=== PATIENT | male | born 1960 | race Caucasian/White ===

== ENCOUNTER → 2016-05-12 | Outpatient (CLI) | payer BC ==
[~2016-05-12] MED LIST: ASPI81TA21 PO; ATOR-54 PO; CARV3.12 PO; CLB/200 PO; CYCL-259 PO; ESOM40GR PO; FLUO20CA34 PO; LISI-725 PO; LSX/40 PO; POTA12PO5 PO
== END | disposition home or self-care (01) ==
LOC: C.RDSM 14:00
PROVIDERS: ATTEND Orthopaedic Surgery Sports Medicine
DX: M25.561 Pain in right knee (principal); M25.562 Pain in left knee

== ENCOUNTER → 2016-08-25 | Outpatient (CLI) | payer BC ==
--- NOTE | 2016-08-25 12:49 | DIAGNOSTIC IMAGING REPORT ---
MRI OF THE RIGHT KNEE NO CONTRAST CLINICAL HISTORY: M25.469 right knee lateral pain. History of multiple prior surgeries. Swelling. COMPARISON STUDY: July 26, 2009 FINDINGS: Imaging was performed in the sagittal, coronal, and axial planes. There is mild motion artifact. The quadriceps and patellar tendons appear intact. The posterior cruciate ligament appears intact. A normal anterior cruciate ligament is not visualized. It is presumably torn. There is advanced chondrosis involving the lateral joint compartment. There is mild to moderate chondrosis involving the medial joint compartment. There is advanced chondrosis involving the lateral patellofemoral joint. There is mild lateral patellar tilt. There is subchondral marrow edema involving the lateral patellar facet, likely degenerative basis. There is marrow edema involving the lateral tibial plateau, likely on a degenerative basis. There is no evidence of medial or lateral collateral ligament disruption There is a horizontal tear involving the anterior horn of the lateral meniscus. There is also an equivocal tear involving the posterior horn of the lateral meniscus. There is a bucket-handle tear the medial meniscus. IMPRESSION: 1. Anterior cruciate ligament tear 2. Advanced 3 compartment chondrosis. 3. Lateral patellar tilt 4. Subchondral marrow edema involving the lateral patellar facet and lateral tibial plateau likely degenerative/stress related basis 5. No evidence of medial or lateral collateral ligament disruption 6. Tears of the medial and lateral menisci Electronically signed by: Dillan Rubi M.D. 08/25/2016 12:47 PM Dictated Date/Time: 08/25/2016 12:40 PM
== END | disposition home or self-care (01) ==
LOC: C.MRI 09:37
PROVIDERS: ATTEND Orthopaedic Surgery Sports Medicine
DX: M25.469 Effusion, unspecified knee (principal)

== ENCOUNTER 2017-05-01 07:56 | Inpatient (IN) | payer BC ==
[2017-04-13 11:22] VITALS: Ht 170.2 cm; Wt 102.3 kg
--- NOTE | 2017-04-13 11:55 | PAT Medication Instructions ---
Service Date Apr 13, 2017. Current Home Medication List Allopurinol (Zyloprim), 100 MG PO QAM Celecoxib (CeleBREX), 200 MG PO BID Folic Acid (Folvite), 1 MG PO QAM Hydrochlorothiazide (Hctz), 25 MG PO QAM Lisinopril (Prinivil), 10 MG PO HS Montelukast Sodium (Montelukast Sodium), 1 TAB PO QAM Pantoprazole (Protonix), 40 MG PO QAM Potassium Citrate (Alkalinizer (Urocit-K 10), 1 TAB PO QAM Medication Instructions For Your Scheduled Surgery -Contact your surgeon for instructions for: Celecoxib (CeleBREX), 200 MG PO BID - Hold the following medications the night before surgery: Lisinopril (Prinivil), 10 MG PO HS - Hold the following medications the morning of surgery: Folic Acid (Folvite), 1 MG PO QAM Hydrochlorothiazide (Hctz), 25 MG PO QAM Potassium Citrate (Alkalinizer (Urocit-K 10), 1 TAB PO QAM - Take the following medications the morning of surgery with a sip of water: Allopurinol (Zyloprim), 100 MG PO QAM Montelukast Sodium (Montelukast Sodium), 1 TAB PO QAM Pantoprazole (Protonix), 40 MG PO QAM If you have any questions please call us at [phone] or [phone] or [phone]
[2017-04-13 12:33] LABS: BASO % 0.7 %; BASO ABS # 0.06 K/uL (0-0.2); EOS % 1.4 %; EOS ABS # 0.11 K/uL (0-0.5); HEMATOCRIT 45.2 % (42-52); HEMOGLOBIN 16.5 g/dL (14.0-18.0); IG# 0.02 K/uL (0.00-0.02); LYMPH % 28.7 %; LYMPH ABS # 2.33 K/uL (1.2-3.4); MEAN CELL VOLUME 83.2 fL (80-100); MEAN CORPUSCULAR HEMOGLOBIN 30.4 pg (25-34); MEAN CORPUSCULAR HGB CONC 36.5 g/dl (32-36); MEAN PLATELET VOLUME 9.1 fL (7.4-10.4); MONO % 10.7 %; MONO ABS # 0.87 K/uL (0.11-0.59); NEUT % 58.3 %; NEUT ABS # 4.74 K/uL (1.4-6.5); PLATELET COUNT 433 K/uL (130-400); RED CELL DISTRIBUTION WIDTH CV 13.7 % (11.5-14.5); WHITE BLOOD COUNT 8.13 K/uL (4.8-10.8)
[2017-04-13 12:42] LABS: PTT PATIENT 24.9 SECONDS (21.0-31.0)
--- NOTE | 2017-04-13 13:00 | DIAGNOSTIC IMAGING REPORT ---
CHEST 2 VIEWS ROUTINE CLINICAL HISTORY: Preoperative evaluation. COMPARISON STUDY: Chest radiograph August 12, 2009. FINDINGS: The lung volumes are normal. There is no pneumothorax or pleural effusion. Pulmonary vascularity is normal. Cardiac size is normal. Mediastinal contours are normal. There is no consolidation. There are cholecystectomy clips. IMPRESSION: No acute cardiopulmonary findings. Electronically signed by: Ad Kumari M.D. 04/13/2017 12:59 PM Dictated Date/Time: 04/13/2017 12:58 PM
--- NOTE | 2017-04-13 15:38 | History and Physical ---
History & Physical Date & Time of Service: Apr 13, 2017 at 15:19 Chief Complaint: Right Knee Osteoarthritis Primary Care Physician: Isaias Roberts M.D. History of Present Illness Source: patient Patient is a pleasant 56-year-old male who presented to our office today for preoperative history and physical. He is scheduled to have a right total knee arthroplasty by Dr. Osuna on May 01, 2017. He has had many years of right knee pain. He had undergone a right knee arthroscopy partial medial and lateral meniscectomies, loose body removal, chondroplasty of the trochlea medial and lateral tibial plateaus, and lateral femoral Garcia on August 23, 2009. He complains of pain in his right knee on a daily basis. He has undergone conservative treatment which no longer is that beneficial. He previously has had corticosteroid injections and a series of viscous supplementation back in September 2016. He states he really did not get any improvement from viscous supplementation. He has pain daily and with every daily activity that he performs. His pain that wakes him up at night. He states he occasionally gets pain at rest. He has start up pain. He states that he has had to modify all of his activities to avoid symptoms of pain. He denies any catching or locking of his right knee but occasionally have some giving way type symptoms. Due to his progressively worsening symptoms, Surgical intervention was discussed. Risks and complications were discussed. He wished to proceed with surgery. Surgery was scheduled. X-rays have been takenAnd show mild to moderate degenerative changes of the right knee with joint space narrowing consistent with degenerative joint disease. He also had an MRI which showed advanced tricompartmental arthritis. Past Medical/Surgical History 1. Hypertension 2. 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 Osteoarthritis 4. Obesity 5. History of kidney stones 6. History of post operative staph infection in his right knee Past surgical history: 1. Right knee arthroscopy 5 2. Left knee arthroscopy 2 3. Left triceps tendon repair 4. Appendectomy 5. Splenectomy 6. Tonsillectomy 7. Lithotripsy for kidney stones 8. C-spine surgery Family History Reviewed and Noncontributory Social History Smoking Status: Never Smoker Alcohol Use: 2 alcoholic Vivi's per week Drug Use: none Marital Status: Housing status: lives with family Occupational Status: employed Allergies Coded Allergies: Penicillins (Verified Allergy, Unknown, HIVES, 04/13/17) Sulfa Drugs (Verified Allergy, Unknown, ? HIVES, OCCURED A CHILD, ) Home Medications Scheduled Allopurinol (Zyloprim), 100 MG PO QAM Celecoxib (CeleBREX), 200 MG PO BID Folic Acid (Folvite), 1 MG PO QAM Hydrochlorothiazide (Hctz), 25 MG PO QAM Lisinopril (Prinivil), 10 MG PO HS Montelukast Sodium (Montelukast Sodium), 1 TAB PO QAM Pantoprazole (Protonix), 40 MG PO QAM Potassium Citrate (Alkalinizer (Urocit-K 10), 1 TAB PO QAM Review of Systems Constitutional: + problem reported (occasional headaches), No fever, No chills , No sweats, No weight loss, No fatigue Eyes: No worsening of vision, No redness ENT: No hearing loss, No nasal symptoms, No sore throat, No tinnitus, No dental problems Respiratory: + dyspnea on exertion (states gets short of breath with activities due to being out of shape), No cough, No sputum, No wheezing, No shortness of breath, No dyspnea at rest Cardiovascular: No chest pain, No edema, No palpitations Abdomen: No pain, No nausea, No vomiting, No diarrhea, No constipation Musculoskeletal: + joint pain (Bilateral knees; right greater than left), No swelling, No calf pain Genitourinary - Male: No hematuria, No dysuria, No urinary frequency, No urinary urgency, No urinary retention Neurologic: No memory loss, No numbness/tingling Psychiatric: No depression symptoms, No anxiety Endocrine: No fatigue, No excessive thirst Hematologic / Lymphatic: No abnormal bleeding/bruising, No clotting problems Integumentary: No rash, No itch Allergic / Immunologic: No frequent infections, No poor healing Physical Exam General Appearance: WD/WN, no apparent distress Head: normocephalic, atraumatic Eyes: normal inspection, PERRL, EOMI, sclerae normal ENT: normal ENT inspection, hearing grossly normal, TMs normal, pharynx normal Neck: supple, no adenopathy, thyroid normal, no carotid bruits, trachea midline Respiratory/Chest: chest non-tender, lungs clear, normal breath sounds, no respiratory distress, no accessory muscle use Cardiovascular: regular rate, rhythm, no edema, no murmur, normal peripheral pulses Abdomen/GI: normal bowel sounds, non tender, soft Extremities/Musculoskelatal: no calf tenderness, normal capillary refill, no pedal edema, + pertinent finding (Right lower extremity: No effusion right knee , Distal neurovascularly intact. Strength 5/5. Range of motion on the right knee as 5-120, range of motion on the left knee is 5-125. He is able to independent straight leg raise. Ligamentous exam right knee is stable. Point tenderness with palpation of the right knee lateral joint line and proximal lateral tibial plateau. A slight antalgic gait. Uses no assistive device.) Neurologic/Psych: no motor/sensory deficits, alert, normal mood/affect, normal reflexes, oriented x 3 Skin: normal color, warm/dry, no rash Diagnostics Laboratory Results Results Past 24 Hours Test 04/13/17 00:00 04/13/17 12:07 Range/Units Urine Color YELLOW Urine Appearance CLEAR CLEAR Urine pH 6.0 4.5-7.5 Urine Specific [place] 1.008 1.000-1.030 Urine Protein NEG NEG Urine Glucose (UA) NEG NEG Urine Ketones NEG NEG Urine Occult Blood NEG NEG Urine Nitrite NEG NEG Urine Bilirubin NEG NEG Urine Urobilinogen NEG NEG Urine Leukocyte Esterase NEG NEG White Blood Count 8.13 4.8-10.8 K/uL Red Blood Count 5.43 4.7-6.1 M/uL Hemoglobin 16.5 14.0-18.0 g/dL Hematocrit 45.2 42-52 % Mean Corpuscular Volume 83.2 80-100 fL Mean Corpuscular Hemoglobin 30.4 25-34 pg Mean Corpuscular Hemoglobin Concent 36.5 32-36 g/dl Platelet Count 433 130-400 K/uL Mean Platelet Volume 9.1 7.4-10.4 fL Neutrophils (%) (Auto) 58.3 % Lymphocytes (%) (Auto) 28.7 % Monocytes (%) (Auto) 10.7 % Eosinophils (%) (Auto) 1.4 % Basophils (%) (Auto) 0.7 % Neutrophils # (Auto) 4.74 1.4-6.5 K/uL Lymphocytes # (Auto) 2.33 1.2-3.4 K/uL Monocytes # (Auto) 0.87 0.11-0.59 K/uL Eosinophils # (Auto) 0.11 0-0.5 K/uL Basophils # (Auto) 0.06 0-0.2 K/uL RDW Standard Deviation 41.0 36.4-46.3 fL RDW Coefficient of Variation 13.7 11.5-14.5 % Immature Granulocyte % (Auto) 0.2 % Immature Granulocyte # (Auto) 0.02 0.00-0.02 K/uL Prothrombin Time 10.5 9.0-12.0 SECONDS Prothromb Time International Ratio 1.0 0.9-1.1 Activated Partial Thromboplast Time 24.9 21.0-31.0 SECONDS Partial Thromboplastin Ratio 1.0 Diagnostic Radiology Radiology images: X-rays bilateral knee: AP standing, lateral, sunrise and 45 flexion PA views show mild to moderate degenerative changes of the right knee with joint space narrowing laterally, sclerosis, increased osteophyte formation, most significant in the patellofemoral joint and intercondylar notch. Left knee mild degenerative changes medial joint space narrowing, sclerosis, posterior osteophytes. Is a small calcified lesion adjacent to the medial cortex of the proximal tibia at the metaphyseal diaphyseal junction. X-ray bilateral hips to ankles: Bilateral leg length study measures 176 on the right 179 on the left. MRI of right knee: Shows advanced tricompartmental arthritis, most significantly the patellofemoral joint with [id number], and edema and subchondral cyst within the patella and trochlea. Significant edema within the subchondral bone of the lateral tibial plateau. CXR normal Impression Assessment and Plan Assessment: End stage degenerative joint disease right knee Plan: The patient will be admitted on May 01, 2017 to undergo an elective right total knee arthroplasty by Dr. Osuna at the [facility]. Risks and complications of surgery were expanded the patient and include but are not limited to infection, pain, bleeding, scarring, nerve and blood vessel damage, wound problems, weakness, stiffness, incomplete relief of symptoms, fracture, hardware failure, loosening, wear, blood clots, embolisms, heart attack, stroke and . Informed consent was obtained by Dr. Osuna. All questions were answered today. Postoperative course was discussed. He will be admitted for approximately 2 days after surgery and would like to go home with home health. He states that he does have a walker at home that he could use after surgery. He was instructed on the usage of CHG cloths. He will have permission testing later today in which he will obtain a preoperative chest x- ray, EKG, CBC, BMP, PT, PTT, type and screen, urinalysis. He will have preoperative medical clearance from his family physician Dr. Roberts. We will use Lovenox for DVT prophylaxis 30 mg twice a day 21 days after surgery. Time out of work was discussed. He feels that he can go back relatively soon with having sedentary job and the ability to ride with someone to work. I explained to him he would at least need to be out for approximately 2 weeks or until his first postoperative appointment. He knows to call with any further problems, questions or concerns. Advanced Directives Existing Living Will: No Existing Power of Warning Coordination Meteorologist: No Resuscitation Status VTE Prophylaxis Will order VTE Prophylaxis: Yes
[~2017-05-01] VITALS: Ht 170.2 cm; Wt 102.3 kg
[~2017-05-01 07:56] MED LIST changes: +ALLO100T PO; -ASPI81TA21 PO; -ATOR-54 PO; -CARV3.12 PO; +CEFAZOLIN 2000MG IV PUSH 15 ML IV SCH; -CYCL-259 PO; +CeleBREX 200 MG CAP PO SCH; -ESOM40GR PO; -FLUO20CA34 PO; +FOLI1TAB8 PO; +GABAPENTIN 300 MG CAP PO SCH; +HYDR25TA4 PO; +LACTATED RINGER'S 1000ML 1,000 ML IV SCH; +LACTATED RINGER'S 1000ML 500 ML IV SCH; +LACTATED RINGER'S 1000ML IV SCH; -LISI-725 PO; +LISI10TA PO; -LSX/40 PO; +MONT1TAB5 PO; +PANT40TA PO; -POTA12PO5 PO; +POTATAB2 PO; +ROPIVACAINE 5MG/ML 30 ML 150 MG, BUPIVACAINE/EPINEPHR 0.5% MPF 30 ML, KETOROLAC TROMETH... INFIL SCH; +SCOPOLAMINE 1.5 MG TDSY TD SCH; +TRANEXAMIC ACID INJ 1,000 MG x 1 Bag Preop IV SCH
[2017-05-01] MEDS ORDERED: BUPIVACAINE 0.5 % 5 MG/1 ML PF 10ML VIAL ONE (08:07)
[2017-05-01] MEDS ORDERED: HYDROmorphone INJ 1 MG/ML SYR IV PRN (08:30)
[2017-05-01] MEDS ORDERED: FENTANYL CITRATE INJ 50 MCG/1 ML 2 ML VIAL IV PRN (08:30)
[2017-05-01] MEDS ORDERED: ONDANSETRON INJ 2 MG/ML 2 ML VIAL IV PRN ×2 (08:30→14:15)
[2017-05-01] MEDS ORDERED: ATROPINE SULFATE 0.1 MG/ML 5ML SYR IV PRN (08:30)
[2017-05-01] MEDS ORDERED: EpHEDrine SULFATE INJ 50 MG/ML AMP IV PRN (08:30)
[2017-05-01 09:11] VITALS: BP 148/95; PULSE 80; TEMP 36.5; O2SAT 96
[2017-05-01] MEDS ORDERED: MIDAZOLAM HCL 1 MG/ML 2ML VIAL ONE (09:57)
[2017-05-01] MEDS ORDERED: FENTANYL CITRATE INJ 50 MCG/1 ML 2 ML VIAL ONE (09:57)
--- NOTE | 2017-05-01 10:05 | History & Physical Bridge Note ---
H&P Re-Evaluation Bridge Note: I have examined the patient, reviewed the History & Physical and in the interval since the performance of the History & Physical I have noted the following changes of clinical significance: No changes noted
[2017-05-01] MEDS ORDERED: POVIDONE-IODINE OP SOLN 30 ML BTL ONE (10:40)
[2017-05-01] MEDS ORDERED: ORTHO JOINT ANESTHETIC ONE (10:40)
[2017-05-01] MEDS ORDERED: VANCOMYCIN HCL 1000MG/20ML VIAL ONE ×2 (10:41→13:12)
[2017-05-01] MEDS ORDERED: ROCURONIUM BROMIDE 10 MG/ML 5 ML VIAL IV ONE (10:43)
[2017-05-01] MEDS ORDERED: SUCCINYLCHOLINE CHLORIDE 20 MG/ML 10 ML VIAL IV ONE (10:43)
[2017-05-01] MEDS ORDERED: LIDOCAINE HCL 2% 2 ML VIAL (20MG/ML) ONE (10:43)
[2017-05-01] MEDS ORDERED: PROPOFOL IV EMULSION 10 MG/ML 20 ML VIAL IV ONE (10:43)
[2017-05-01] MEDS ORDERED: DEXAMETHASONE SOD INJ 4 MG/ML VIAL ONE (10:44)
[2017-05-01] MEDS ORDERED: NEOSTIGMINE METHYLSULFATE 5 MG/5 ML SYR ONE (10:44)
[2017-05-01] MEDS ORDERED: HYDROmorphone INJ 2 MG/ML SYR/VIAL ONE (12:01)
[2017-05-01] MEDS: GENTAMICIN SULFATE 40 MG/ML 2 ML VIAL ONE ×2 (12:59→13:16)
--- NOTE | 2017-05-01 14:12 | [facility] Post Operative Brief Note ---
Immediate Operative Summary Operative Date May 01, 2017. Pre-Operative Diagnosis End Stage Degenerative Joint Disease, Right Knee Post-Operative Diagnosis End Stage Degenerative Joint Disease, Right Knee Procedure(s) Performed Right Total Knee Arthroplasty Surgeon Dr. Shashank Osuna Technical Sales Associate Surgeon(s) Dr. Kofi Dolan Estimated Blood Loss 50ML Findings Consistent with Post-Op Diagnosis Fluids (cc crystalloids) 1700 Specimens Permanent Solution: A.) Right Knee Bone and Tissue Drains None Anesthesia Type General Regional Complication(s) none Disposition Disposition: Recovery Room / PACU (Stable)
--- NOTE | 2017-05-01 14:12 | [facility] Operative Report ---
Operative Report Operative Date May 01, 2017. Pre-Operative Diagnosis End Stage Degenerative Joint Disease, Right Knee Post-Operative Diagnosis End Stage Degenerative Joint Disease, Right Knee Procedure(s) Performed Right Total Knee Arthroplasty Surgeon Dr. Shashank Osuna [place] Surgeon(s) Dr. Kofi Dolan Estimated Blood Loss 50ML Findings Right knee Examined Under Anesthesia: ROM -- There was 10 degrees to 115 degrees of flexion Ligamentous examination -- revealed stable Amie, posterior drawer, varus and valgus stress at 0 and 30 degrees. valgus alignment. Out[place]bridge Type 4 changes of patellofemoral, and lateral compartments. There was type 2-3 changes in the medial compartment. Fluids 1700 Specimens Permanent Solution: A.) Right Knee Bone and Tissue Drains None Anesthesia Type General Regional Complication(s) none Disposition Recovery Room / PACU (Stable) Indications This is a 56-year-old male who has clinical and radiographic findings consistent with osteoarthritis of the a right knee. I recommended that a right total knee replacement be performed. The patient understands the risks of surgery, which include but not limited to: bleeding, infection, re-operation, damage to nerves and arteries, continued knee pain, knee stiffness, DVT, and . The patient understands all of these instructions and explanations, all of his questions have been satisfactorily addressed and the patient has elected to proceed. Informed consent was signed. Description of Procedure IMPLANTS: 1. Femur: Triathlon #6 Right PS. 2. Tibia: Triathlon #5 [place] with 12 x 25 mm stem. 3. Insert: Triathlon #5 x 9 mm PS X3 poly. 4. Patella: Triathlon A32 x 9mm X3 poly. Procedure: The patient was taken to the Operating Room and placed in the supine position after general anesthetic and adductor canal nerve block was administered. My initials and a multidisciplinary time-out were used to identify the right leg as the correct operative limb. A tourniquet was placed high in the thigh. Prior to the incision, 2 grams of intravenous Ancef were given. The right leg was then prepped and draped in a standard sterile fashion. An Esmarch was used to exsanguinate the leg and the tourniquet was inflated to 250 mmHg. The planned mid-line 20 cm incision was created exposing the extensor mechanism. The medial parapatellar arthrotomy was made and the patella was everted. The patella was addressed first. It was prepared by reaming from 19 mm down to 12 mm, as there was significant cartilage loss. An A32 button was found to fit best. The peg holes were made in the standard fashion. The femur was addressed next and the guide wesley was placed intramedullary. The initial cutting block was placed with 5 degrees of valgus and removing 10 mm for the anterior cut. The cut was made and the 4-in-1 cutting block for a size 6 femur was placed. These cuts and the cuts to place the box were made in the standard fashion. Our attention was then drawn to the tibia cut with the external cutting guide, taking 2mm from the medial side. There was insufficient space in the cut had to be revised to 7 mm. There was still significant difficulty in placing the 9 mm spacer laterally and the popliteus tendon was released. There was then sufficient extension and flexion gap to fit a 9 mm spacer. A #5 Tibial baseplate fit well. A trial with a 9 mm spacer showed excellent stability in both flexion and extension, with good ligament balance. Range of motion of 0- 120 degrees. The tibial baseplate was pinned and the final preparation for the keel and standard stem was made. All the trial components were tested again, with good stability and thumbs free tracking of the patella. All components were removed. The tourniquet was deflated. Hemostasis was obtained. 90 ml of total knee cocktail were injected into the soft tissues and periosteum. A bone plug was placed in the femur and covered with bone wax. After a 10 minute break, the limb was exsanguinated again and the tourniquet was re-inflated. All surfaces were copiously irrigated prior to placement of the components. The femoral component and Tibial baseplate were placed first followed by the patellar button using Symplex cement With gentamicin and adding 1 g of vancomycin per batch of cement. The 9 mm poly was placed and the range of motion and stability were unchanged. The extensor mechanism was closed with 1-0 and 0 Vicryl with the knee bent approximately 60 degrees in a standard fashion. The peritenon and deep fascia was closed with 2-0 Vicryl. The subcutaneous layer was closed with 3-0 Vicryl. The skin was closed with is applying. The limb was cleaned and dried. Xeroform was placed over top followed by 4x4's, ABDs, sterile Webril, and a foot to thigh Rusty bandage. The patient was then transferred to the Recovery Room in stable condition. The sponge and needle counts were correct. POST-OP INSTRUCTIONS: The patient will be WBAT. The patient will be admitted to the hospital. The patient will use the knee immobilizer when ambulating and standing until good quad control is achieved. Labs will be obtained during her stay. DVT prophylaxis will included Lovenox for 3 weeks then switching to aspirin for 3 more weeks, TEDs, and mechanical foot pumps. I attest to the content of the Intraoperative Record and any orders documented therein. Any exceptions are noted below.
[2017-05-01] MEDS ORDERED: MoRPHine SULFATE 2 MG/ML CARP IV PRN (14:15)
[2017-05-01] MEDS ORDERED: PHENYLEPHRINE HCL INJ 10 MG/ML VIAL ONE (14:37)
[2017-05-01] MEDS ORDERED: ONDANSETRON INJ 2 MG/ML 2 ML VIAL ONE (14:38)
--- NOTE | 2017-05-01 14:55 | Anesthesiology Progress Note ---
Anesthesia Post Op Note Date & Time May 01, 2017 at 14:54 Vital Signs Pain Intensity: 4 Vital Signs Past 12 Hours Date Time Temp Pulse Resp B/P (MAP) Pulse Ox O2 Delivery O2 Flow Rate FiO2 05/01/17 14:45 95 17 126/74 93 Nasal Cannula 4 05/01/17 14:35 87 13 121/72 93 Oxymask 10 05/01/17 14:25 90 16 123/76 94 Oxymask 10 05/01/17 14:18 36.4 91 19 118/80 92 Oxymask 10 05/01/17 09:11 36.5 80 20 148/95 96 Room Air Notes Mental Status: alert / awake / arousable, participated in evaluation Pt Amnestic to Procedure: Yes Nausea / Vomiting: adequately controlled Pain: adequately controlled Airway Patency, RR, SpO2: stable & adequate BP & HR: stable & adequate Hydration State: stable & adequate Anesthetic Complications: no major complications apparent Patient has been doing well in recovery with no issues. He will be transferred to the floor on continuous pulse oximetry for closer monitoring.
--- NOTE | 2017-05-01 15:32 | DIAGNOSTIC IMAGING REPORT ---
R KNEE 1 OR 2 VIEWS ROUTINE HISTORY: 56 years-old Male AP/LATERAL IN PACU RIGHT KNEE status post right knee total joint arthroplasty. Degenerative joint disease. COMPARISON: Right knee radiographs 05/12/2016 TECHNIQUE: 2 views of the right knee FINDINGS: Postoperative changes from right knee total joint arthroplasty and patella resurfacing. Alignment is satisfactory without evidence of postoperative complication. No retained foreign body. Expected postsurgical soft tissue swelling and deep tissue air about the right knee. IMPRESSION: Right knee total joint arthroplasty and patellar resurfacing without complication identified. The above report was generated using voice recognition software. It may contain grammatical, syntax or spelling errors. Electronically signed by: Lui Santos M.D. 05/01/2017 3:31 PM Dictated Date/Time: 05/01/2017 3:30 PM
[2017-05-01 16:00] VITALS: BP 135/83; PULSE 91; TEMP 36.4; O2SAT 94
[2017-05-01] MEDS: CHECK SCOPOLAMINE PATCH PLACEMENT SCH (16:00)
[2017-05-01 16:30] VITALS: BP 132/96; PULSE 102; O2SAT 95
[2017-05-01 16:59] VITALS: BP 144/88; PULSE 91; O2SAT 96
[2017-05-01] MEDS ORDERED: ASPEC81 PO (17:01)
[2017-05-01] MEDS ORDERED: POTA20TA16 PO (17:01)
[2017-05-01] MEDS ORDERED: URC10 PO (17:01)
--- NOTE | 2017-05-01 17:20 | Medical Consult ---
Consultation Date of Consultation: May 01, 2017. Attending Physician: Shashank Osuna MD Reason for Consultation: Postop medical management History of Present Illness 48-year-old male who is s/p right TKA today by Dr. Osuna. Postoperatively the patient is doing well. He reports pain is well controlled. He reports a mild dull ache to the right knee. No numbness or tingling to the right lower extremity. He denies chest pain or shortness of breath. No abdominal pain or nausea. He denies lightheadedness and dizziness. Hartmann catheter is in place draining clear yellow urine. Past Medical/Surgical History Medical Problems: (1) Diverticulosis Status: Chronic (2) GERD (gastroesophageal reflux disease) Status: Chronic (3) Hereditary spherocytosis Status: Chronic (4) HTN (hypertension) Status: Chronic (5) Renal calculi Status: Chronic Surgical Problems: (1) History of appendectomy Status: Chronic (2) Hx of cholecystectomy Status: Chronic (3) Hx of tonsillectomy Status: Chronic (4) Post-splenectomy Status: Chronic Family History FH: colon cancer FATHER Social History Smoking Status: Never Smoker Alcohol Use: occasionally Marital Status: Allergies Coded Allergies: Penicillins (Verified Allergy, Intermediate, HIVES, 05/01/17) Sulfa Antibiotics (Verified Allergy, Unknown, ?HIVES-OCCURRED A CHILD, 05/01/17) Home Medications Potassium Citrate 10 Meq Tab 1 Tab PO BID Klor-Con (Potassium Chloride) 20 Meq Tabcr 20 Meq PO DAILY Aspirin EC Low Dose (Aspirin) 81 Mg Ectab 81 Mg PO DAILY Protonix (Pantoprazole Sodium) 40 Mg Tab 40 Mg PO QAM Montelukast Sodium 10 Mg Tab 1 Tab PO QAM 90 Days Hctz (Hydrochlorothiazide) 25 Mg Tab 25 Mg PO QAM Prinivil (Lisinopril) 10 Mg Tab 10 Mg PO HS Folvite (Folic Acid) 1 Mg Tab 1 Mg PO QAM Zyloprim (Allopurinol) 100 Mg Tab 100 Mg PO QAM CeleBREX (Celecoxib) 200 Mg Cap 200 Mg PO BID Current Inpatient Medications Current Inpatient Medications Medications (Trade) Dose Ordered Sig/Kane Route Start Time Stop Time Status Last Admin Dose Admin Ropivacaine 150 mg/Bupivacaine HCl/Epinephrine Bitart 30 ml/ Ketorolac Tromethamine 30 mg/Dexamethasone Sodium Phosphate 4 mg/Ketamine HCl 10 mg/Clonidine 100 mcg/Sodium Chloride 30 ml/ Empty Bag 93.2 ml @ 0 mls/hr PREOP INFIL 05/01/17 06:00 05/06/17 05:59 05/01/17 12:58 93.2 MLS/HR Lactated Ringer's 1,000 ml @ 15 mls/hr Q24H IV 05/01/17 06:00 05/02/17 05:59 Lactated Ringer's 1,000 ml @ 60 mls/hr [id number] IV 05/01/17 06:00 05/01/17 22:39 Cefazolin Sodium 15 ml @ 3.75 mls/ min PREOP IV 05/01/17 06:00 05/01/17 18:00 05/01/17 11:09 3.75 MLS/MIN Celecoxib (CeleBREX CAP) 200 mg PREOP PO 05/01/17 06:00 05/01/17 18:00 05/01/17 08:56 200 MG Gabapentin (Neurontin Cap) 300 mg PREOP PO 05/01/17 06:00 05/01/17 18:00 05/01/17 08:56 300 MG Miscellaneous (Remove Transderm-Scop Patch) 1 ea Q72H N/A 05/04/17 06:00 05/04/17 06:01 Miscellaneous Information (Check Scopolamine Patch Placement) 1 ea QS N/A 05/01/17 16:00 05/04/17 05:59 Allopurinol (Zyloprim Tab) 100 mg QAM PO 05/02/17 09:00 06/01/17 08:59 UNV Celecoxib (CeleBREX CAP) 200 mg BID PO 05/01/17 21:00 05/31/17 20:59 UNV Folic Acid (Folvite Tab) 1 mg QAM PO 05/02/17 09:00 06/01/17 08:59 UNV Lisinopril (Zestril Tab) 10 mg HS PO 05/01/17 21:00 05/31/17 20:59 UNV Montelukast Sodium (Singulair Tab) 10 mg QAM PO 05/02/17 09:00 06/01/17 08:59 UNV Pantoprazole Sodium (Protonix Tab) 40 mg QAM PO 3/21/18 09:00 06/01/17 08:59 UNV Sodium Chloride 1,000 ml @ 100 mls/hr Q10H IV 05/01/17 14:14 05/02/17 14:13 UNV Cefazolin Sodium 2000 mg/Syringe 15 ml @ 100 mls/hr Q8H IV 05/01/17 20:00 05/02/17 04:08 UNV Acetaminophen/ Hydrocodone Bitart (Felt 5/325 Tab) 1 TABLET FOR PAIN RATING... Q4H PRN PO 05/01/17 14:15 05/15/17 14:14 Morphine Sulfate (MoRPHine SULFATE INJ) 2 mg Q2HWA PRN IV 05/01/17 14:15 05/15/17 14:14 Docusate Sodium (coLACE CAP) 100 mg BID PO 05/01/17 21:00 05/31/17 20:59 UNV Diphenhydramine HCl (Benadryl Cap) 25 mg Q8H PRN PO 05/01/17 14:15 05/31/17 14:14 Ondansetron HCl (Zofran Inj) 4 mg Q6H PRN IV 05/01/17 14:15 05/31/17 14:14 Dexamethasone Sodium Phosphate 10 mg/Syringe 2.5 ml @ 1 mls/min TODAY@0730 ONCE IV 05/02/17 07:30 05/02/17 07:32 UNV Enoxaparin Sodium (Lovenox Inj) 40 mg QAM SQ 05/02/17 09:00 05/22/17 08:00 UNV Potassium Citrate (Urocit-K Tab) 10 meq BID PO 05/01/17 21:00 05/31/17 20:59 UNV Review of Systems ROS per HPI, all other systems reviewed and negative Physical Exam Date Time Temp Pulse Resp B/P (MAP) Pulse Ox O2 Delivery O2 Flow Rate FiO2 05/01/17 16:59 91 16 144/88 (106) 96 Nasal Cannula 2.0 05/01/17 16:30 102 18 132/96 (108) 95 Nasal Cannula 2.0 05/01/17 16:00 Nasal Cannula 4.0 05/01/17 16:00 Nasal Cannula 4.0 05/01/17 16:00 36.4 91 16 135/83 (100) 94 Nasal Cannula 4.0 05/01/17 15:40 92 17 124/89 94 Nasal Cannula 4 05/01/17 15:25 80 18 136/95 94 Nasal Cannula 4 05/01/17 15:10 73 12 129/98 92 Nasal Cannula 4 05/01/17 14:55 36.5 84 17 133/82 93 Nasal Cannula 4 05/01/17 14:45 95 17 126/74 93 Nasal Cannula 4 05/01/17 14:35 87 13 121/72 93 Oxymask 10 05/01/17 14:25 90 16 123/76 94 Oxymask 10 05/01/17 14:18 36.4 91 19 118/80 92 Oxymask 10 05/01/17 09:11 36.5 80 20 148/95 96 Room Air General Appearance: WD/WN, no apparent distress Head: normocephalic, atraumatic Eyes: normal inspection, EOMI, sclerae normal ENT: hearing grossly normal, + pertinent finding (Mucous membranes moist) Neck: supple, no JVD, trachea midline Respiratory/Chest: lungs clear, normal breath sounds, no respiratory distress Cardiovascular: regular rate, rhythm, no edema, normal peripheral pulses Abdomen/GI: normal bowel sounds, non tender, soft, no organomegaly, + distended Genitourinary - Male: + pertinent finding (Hartmann catheter in place draining clear yellow urine) Extremities/Musculoskelatal: + pertinent finding (S/P right knee surgery, surgical dressing dry and intact, CSM checks intact right lower extremity) Neurologic/Psych: no motor/sensory deficits, alert, normal mood/affect, oriented x 3 Skin: normal color, warm/dry Laboratory Results Last 24 Hours Test 05/01/17 09:09 Assessment & Plan S/P RIGHT TKA - POD#0 - activity and wound care orders as per ortho - pain control with bowel regimen - PT/OT - monitor H/H for acute blood loss anemia and transfuse blood products PRN HYPERTENSION -BP controlled, continue lisinopril -Hold hydrochlorothiazide for now to prevent perioperative dehydration GERD -Continue PPI HISTORY OF GOUT -Continue allopurinol HISTORY OF SPLENECTOMY DVT PROPHYLAXIS -SQ Lovenox as per orthopedics ATTENDING ADDENDUM: Patient seen and examined care coordinated with Chrissie castelan PA-C 56-year-old male status post right knee surgery for degenerative joint disease Recovering well postop No complaint of chest pain, shortness of breath, dizzy spell Assessment and plan: 1. Status post right knee surgery: continue management as per orthopedics 2.Hypertension Controlled On lisinopril HCTZ on hold to prevent postoperative dehydration/AK I Repeat BMP in a.m. HCTZ can be resumed if renal function stays stable Margareth Saab MD Thank you for this consultation. We will follow the patient with you during their hospital stay. You [facility] a [facility]/09 via pager @ [phone].
[2017-05-01] MEDS: SODIUM CHLORIDE 0.9% 1000ML 1,000 ML IV SCH (17:26)
[2017-05-01 17:56] VITALS: BP 146/93; PULSE 103; O2SAT 97
[2017-05-01 19:00] VITALS: BP 141/91; PULSE 71; TEMP 36.9; O2SAT 96
[2017-05-01] MEDS: HYDROCODONE/ACETAMIN 5/325MG TAB PO PRN (19:32)
[2017-05-01] MEDS: CeleBREX 200 MG CAP PO SCH (20:31)
[2017-05-01] MEDS: POTASSIUM CITRATE 10 MEQ TAB PO SCH (20:31)
[2017-05-01] MEDS: CEFAZOLIN IV 2,000 MG in SYRINGE 0 ML IV SCH (20:31)
[2017-05-01] MEDS: DOCUSATE SODIUM 100 MG CAP PO SCH (20:32)
[2017-05-01] MEDS ORDERED: LISINOPRIL 10 MG TAB PO SCH (21:00)
[2017-05-02] MEDS: CHECK SCOPOLAMINE PATCH PLACEMENT SCH ×3 (00:02→16:04)
[2017-05-02 00:08] VITALS: BP 102/63; PULSE 76; TEMP 36.6; O2SAT 90
[2017-05-02] MEDS: SODIUM CHLORIDE 0.9% 1000ML 1,000 ML IV SCH (02:43)
[2017-05-02 03:00] VITALS: BP 110/66; PULSE 80; TEMP 36.8; O2SAT 90
[2017-05-02] MEDS: CEFAZOLIN IV 2,000 MG in SYRINGE 0 ML IV SCH (03:56)
[2017-05-02] MEDS ORDERED: DEXAMETHASONE INJ 10 MG in SYRINGE 0 ML IV ONE (07:30)
[2017-05-02 08:02] VITALS: BP 118/74; PULSE 76; TEMP 36.7; O2SAT 93
[2017-05-02 08:23] LABS: HEMATOCRIT 35.6 % (42-52); HEMOGLOBIN 12.6 g/dL (14.0-18.0); MEAN CELL VOLUME 82.2 fL (80-100); MEAN CORPUSCULAR HEMOGLOBIN 29.1 pg (25-34); MEAN CORPUSCULAR HGB CONC 35.4 g/dl (32-36); MEAN PLATELET VOLUME 8.9 fL (7.4-10.4); PLATELET COUNT 263 K/uL (130-400); RED CELL DISTRIBUTION WIDTH CV 13.6 % (11.5-14.5); RED CELL DISTRIBUTION WIDTH SD 41.5 fL (36.4-46.3); WHITE BLOOD COUNT 20.22 K/uL (4.8-10.8)
--- NOTE | 2017-05-02 08:27 | Orthopedic Progress Note ---
Orthopedic Progress Note Date of Service May 02, 2017. Subjective Post OP Day: 1 Reports: feeling well, pain controlled w PO medications, Denies: complaints, chest pain, SOB, nausea / vomiting, light headedness, calf pain Additional Notes: States the knee has some discomfort but nothing sharp or unbearable. Objective calves soft nontender, N/V intact, capillary refill less than 2 sec., dressing C /D/I, A&O x3, toes mobile, CMS intact Dressings are dry. Motor function intact to knee/ankle/toes. Date Time Temp Pulse Resp B/P (MAP) Pulse Ox O2 Delivery O2 Flow Rate FiO2 05/02/17 08:02 36.7 76 20 118/74 (89) 93 Room Air 05/02/17 03:00 36.8 80 16 110/66 (81) 90 Room Air 05/02/17 00:08 36.6 76 16 102/63 (76) 90 Room Air 05/01/17 23:30 Room Air 05/01/17 19:00 36.9 71 16 141/91 (108) 96 Nasal Cannula 2.0 05/01/17 17:56 103 18 146/93 (110) 97 Nasal Cannula 2.0 05/01/17 16:59 91 16 144/88 (106) 96 Nasal Cannula 2.0 05/01/17 16:30 102 18 132/96 (108) 95 Nasal Cannula 2.0 05/01/17 16:00 Nasal Cannula 4.0 05/01/17 16:00 Nasal Cannula 4.0 05/01/17 16:00 36.4 91 16 135/83 (100) 94 Nasal Cannula 4.0 05/01/17 15:40 92 17 124/89 94 Nasal Cannula 4 05/01/17 15:25 80 18 136/95 94 Nasal Cannula 4 05/01/17 15:10 73 12 129/98 92 Nasal Cannula 4 05/01/17 14:55 36.5 84 17 133/82 93 Nasal Cannula 4 05/01/17 14:45 95 17 126/74 93 Nasal Cannula 4 05/01/17 14:35 87 13 121/72 93 Oxymask 10 05/01/17 14:25 90 16 123/76 94 Oxymask 10 05/01/17 14:18 36.4 91 19 118/80 92 Oxymask 10 05/01/17 09:11 36.5 80 20 148/95 96 Room Air Laboratory Results 24 Hours: Test 05/02/17 07:50 Assessment & Plan Assessment: Right knee post op day 1 total knee arthroplasty Plan: PT/OT today hep lock IV-taking po well continue anticoagulation Will consider D/C later today or early tomorrow based on PT/OT performance anticipate D/C to home with home health. I, Dr. Osuna, saw and examined the patient and discussed the management with my PA. I reviewed my PAs note and agree with the documented findings and the plan of care I developed. Patient was doing very well, Shahbaz Carrasquillo. Discharge Planning Discharge Planning: home with home health Pain Management: Percocet DVT Prophylaxis: TEDs, SCDs, Lovenox Therapy: Physical Therapy, Occupational Therapy
[2017-05-02 08:53] VITALS: O2SAT 93
[2017-05-02] MEDS ORDERED: PANTOprazole SOD 40 MG TAB PO SCH (09:00)
[2017-05-02] MEDS ORDERED: POTASSIUM CITRATE 10 MEQ TAB PO SCH (09:00)
[2017-05-02] MEDS ORDERED: ENOXAPARIN 40 MG/0.4 ML SYR SQ SCH (09:00)
[2017-05-02] MEDS ORDERED: HYDROCHLOROTHIAZIDE 25 MG TAB PO SCH (09:00)
[2017-05-02] MEDS ORDERED: MONTELUKAST SOD 10 MG TAB PO SCH (09:00)
[2017-05-02] MEDS ORDERED: ALLOPURINOL 100 MG TAB PO SCH (09:00)
[2017-05-02 09:01] LABS: CALCIUM 7.9 mg/dl (8.5-10.1); CREATININE 1.01 mg/dl (0.60-1.40); POTASSIUM 3.8 mmol/L (3.5-5.1)
[2017-05-02] MEDS: POTASSIUM CITRATE 10 MEQ TAB PO SCH (09:01)
[2017-05-02] MEDS: DOCUSATE SODIUM 100 MG CAP PO SCH (09:01)
[2017-05-02] MEDS: CeleBREX 200 MG CAP PO SCH (09:01)
[2017-05-02] MEDS: HYDROCODONE/ACETAMIN 5/325MG TAB PO PRN ×2 (09:05→16:07)
--- NOTE | 2017-05-02 10:59 | Anesthesiology Progress Note ---
Anesthesia Post Op Note Date & Time May 02, 2017 at 10:58 Vital Signs Pain Intensity: 4.0 Vital Signs Past 12 Hours Date Time Temp Pulse Resp B/P (MAP) Pulse Ox O2 Delivery O2 Flow Rate FiO2 05/02/17 08:53 93 Room Air 05/02/17 08:02 36.7 76 20 118/74 (89) 93 Room Air 05/02/17 07:30 Room Air 05/02/17 03:00 36.8 80 16 110/66 (81) 90 Room Air 05/02/17 00:08 36.6 76 16 102/63 (76) 90 Room Air 05/01/17 23:30 Room Air Notes patient with PT walking in halls.
[2017-05-02 11:41] VITALS: BP 132/80; PULSE 89; TEMP 37.2; O2SAT 92
[2017-05-02] MEDS ORDERED: NURSING VERBAL MED ORDER ONE (12:00)
[2017-05-02] MEDS ORDERED: OXYC-57 PO (13:37)
[2017-05-02] MEDS ORDERED: ENOX40IN SQ (13:37)
--- NOTE | 2017-05-02 13:42 | Discharge Instructions ---
Discharge Instructions Date of Service May 02, 2017. Admission Reason for Admission: Right Knee Osteoarthritis Discharge Discharge Diagnosis / Problem: Right knee s/p total knee replacement Discharge Goals Goal(s): Decrease discomfort, Improve function, Increase independence Activity Recommendations Activity Limitations: as noted below Lifting Limitations: gradually increase as tolerated Exercise/Sports Limitations: until after follow-up appointment Shower/Bathe: keep incision dry Driving or Machine Use: No driving until cleared by Dr. Osuna Weightbearing Status: Right weightbearing (as tolerated) . Instructions / Follow-Up Instructions / Follow-Up New Medicine: * You will likely be taking one or more of these medications: 1. Percocet - Take, as directed, when you need it, every four to six hours to control your pain. 2. Lovenox - Thins your blood to lessen the chance of forming a blood clot. The dose of this is different for each person. * The most common side effects of pain medicine and iron are nausea and constipation. If nausea or constipation is too much of a problem or if you have any questions about your new medicines or doses, call [facility] at . We will try to help you manage these issues. VERY IMPORTANT TO READ AND REVIEW" Blood Clots and Blood Thinning Medicine: * You are given Lovenox during the immediate post-operative period to lessen the risk of blood clots forming in your legs and/or lungs. Lovenox is usually given for 3 weeks after surgery. Pain: * The immediate post-operative period after knee replacement surgery is often quite painful. * You are given a prescription for pain medicine. You should take it, as directed, when you need it, especially before physical therapy and before going to bed. Pain that interferes with sleep is very common and can last several months. * You will likely need pain medicine for the first four to six weeks. It will not stop all of the pain. The pain will lessen and as you feel better, you may change to milder pain medicine such as Tylenol. * The most common side effects of pain medicine are nausea and constipation, so don't take more than you need. Physical Therapy: * You will have physical therapy two or three times each week for four to six weeks after your surgery in order to regain your knee range of motion and to retrain your knee to work properly. * It is just as important to make sure you are getting your knee perfectly straight as it is to regain your knee bend. * Taking a pain pill an hour before therapy can help you have a more productive and comfortable therapy session if needed. Home Exercise: * You were shown a series of exercises (heel props, heel slides, etc.) in the hospital. Do these exercises three to four times each day including the exercises you were shown in physical therapy. Walking: * Get up and walk several times each day. For the first four weeks, try not to stand or walk for more than one hour at a time. If you do stand or walk for more than one hour, you will not hurt anything, but your knee and leg will likely swell. * As you feel comfortable, you may change from the walker or crutches to a cane and then to independent walking. SELF CARE INSTRUCTIONS AFTER TOTAL KNEE REPLACEMENT A. You may need to continue a physical therapy program after discharge from the hospital. There are several options available to you. Your doctor will assist you in selecting the best one for you. 1. An out-patient facility 2 to 3 times a week for therapy or home therapy. 2. Continue working on all exercises taught to you in the hospital. Your goals should be to increase bending of your knee to 90 degrees and beyond and to fully straighten your knee. B. You may progress at your own pace from walking with a walker or crutches to a cane; then to no assistive devices. C. Make walking a part of your daily routine. Be up as much as comfortable with rest periods throughout the day. Rest with leg elevation is very important. Use the ice wrap frequently for the first 3-4 weeks. D. There are no restrictions on activities. You may ride in a car, shop, participate in station supervisor and all social activities. E. Wear the long elastic stockings (DELORES hose) 20 hours a day for six weeks after surgery. They can be removed several times a day for laundering and for a shower. F. Do not place a pillow behind your knee when resting. A pillow at your ankle is okay. VERY IMPORTANT TO READ AND REVIEW A. Take Coumadin, Aspirin or Lovenox (blood thinning medications) as directed by your doctor. B. There are a few signs you need to watch for after you are home. Call [facility] if you notice any of the followin. Increased severe knee pain. Some pain is expected especially when you exercise. 2. Increased swelling in your leg or knee; pain or swelling of the calf muscle in either lower leg. 3. Any fluid drainage from the incision. 4. Shortness of breath or chest pain. C. Please call [facility] at if you have any concerns or questions about your operation or recovery. The doctor or his nurse will return your call promptly. D. You must take antibiotics before dental work, bladder, bowel or other surgery. Call the office to obtain a prescription at least 2 days prior to your appointment. * CALL IF INCREASED PAIN, REDNESS, DRAINAGE OR FEVER GREATER THAT 101. * Sutures should be removed 12-14 days after surgery unless you are on chronic steriods, then it will be 14-18 days after surgery. Call your doctor if: * Temperature above 101 degrees F. * Pain not relieved by pain medicine ordered. * Increased drainage or redness from incision. * Notify your doctor with any questions or concerns. Current Hospital Diet Patient's current hospital diet: Regular Diet Discharge Diet Recommended Diet: Regular Diet Procedures Procedures Performed: Right Total Knee Arthroplasty Pending Studies Studies pending at discharge: no Medical Emergencies . Who to Call and When: Medical Emergencies: If at any time you feel your situation is an emergency, please call 911 immediately. . Non-Emergent Contact Non-Emergency issues call your: Primary Care Provider, Surgeon Call Non-Emergent contact if: temperature is above 101, wound has increased drainage, wound has increased redness, wound has increased pain, you have any medication questions . "Provider Documentation" section prepared by Sunny Yanes PA-C. . [place] Drug Monitoring Program Search Results: no issues identified
[2017-05-02 13:46] VITALS: BP 132/80; PULSE 89; TEMP 37.2; O2SAT 92
--- NOTE | 2017-05-02 14:59 | DISCHARGE SUMMARY ---
PRIMARY CARE PHYSICIAN: Dr. Roberts. CONDITION ON DISCHARGE: Stable. DISCHARGE DIAGNOSIS: Right knee, status post total knee arthroplasty. PROCEDURE: Right knee total knee arthroplasty. HISTORY OF PRESENT ILLNESS: This 56-year-old white male presented to the office with complaints of right knee pain that had been ongoing for several years. He previously underwent right knee arthroscopy with partial medial and lateral meniscectomies and loose body removal on 08/23/2009. Pain has been present on a daily basis since then. He had tried conservative care measures without success. He did have pain at rest as well as with activity. No catching or locking. He elected to proceed with surgical intervention in hopes of alleviating his pain. Preoperative imaging was obtained. PAST MEDICAL HISTORY: Hypertension, history of hemolytic anemia which resolved with splenectomy, osteoarthritis, obesity, history of kidney stones, and history of postoperative staph infection in his right knee. PAST SURGICAL HISTORY: Right knee arthroscopy x5, left knee arthroscopy x2, left triceps tendon repair, appendectomy, splenectomy, tonsillectomy, lithotripsy for kidney stones, and cervical spine surgery. FAMILY HISTORY: Noncontributory. SOCIAL HISTORY: No tobacco use. Occasional ETOH use. . Employed. ALLERGIES: KNOWN ALLERGY TO SULFA DRUGS AND PENICILLIN. HOSPITAL COURSE: The patient was admitted through same day surgery on 05/01/2017. He underwent successful right knee total knee arthroplasty. He was taken to the recovery room in satisfactory condition. He did well in the rest of that evening. Pain was controlled with IV and oral pain medication. He remained afebrile. He was started on Lovenox 40 mg daily on the morning of 05/02/2017. He was able to eat breakfast. The patient states he slept very well and had no episodes of excruciating pain. He did participate in physical therapy and occupational therapy on 05/02/2017 and was able to flex his knee to around 85 degrees. He was able to ambulate 325 feet. Vitals remained stable throughout his stay with a T-max of 37.2. O2 sat remained adequate on room air. He felt well enough for discharge and was discharged to home with home health services. LABORATORIES: H&H on the morning of 05/02/2017 was 12.6 and 35.6. Partial renal profile was unremarkable with sodium 138, potassium 3.8, chloride 105, and CO2 of 27. BUN 18 and creatinine 1.01. DISCHARGE MEDICATIONS: Lovenox 40 mg subQ daily x3 weeks. Percocet 5/325 mg to be taken 1-2 tablets every 4 hours as needed for pain. Continue his allopurinol 100 mg p.o. q.a.m., aspirin 81 mg p.o. daily, folic acid 1 mg p.o. q.a.m., HCTZ 25 mg p.o. q.a.m., lisinopril 10 mg p.o. at bedtime, Singulair 10 mg p.o. q.a.m., Protonix 40 mg p.o. q.a.m., potassium citrate 10 mEq p.o. b.i.d., and potassium extended release 20 mEq p.o. daily. He will stop his Celebrex. DISCHARGE INSTRUCTIONS: Written discharge instructions were provided to the patient. He will keep his dressing intact and dry until seen here in the office on Sunday morning for dressing change. He may start physical therapy through [facility] tomorrow. Follow up in [address] Osuna as scheduled for staple removal. He may resume his normal regular diet. After he has finished with his Lovenox injections in 3 weeks, he may start aspirin 325 mg twice a day for 3 more weeks for DVT prophylaxis. Continue with his DELORES rizzo. Call the office with any other concerns. DONI
--- NOTE | 2017-05-02 15:01 | Progress Note ---
Internal Med Progress Note Date of Service: May 02, 2017. Provider Documentation: SUBJECTIVE: The patient was seen and examined. He is status post a right knee replacement. Complains to have some pain in the knee but no other symptoms. Denies to have any chest pain shortness of breath or palpitation, any abdominal pain nausea and/or vomiting. OBJECTIVE: Vital Signs-as noted below Exam: General-no apparent distress Eyes-normal ENT-normal Neck-supple Lungs-clear to auscultate bilaterally Heart-regular, no murmur appreciated Abdomen-benign, nontender, no organomegaly, bowel sounds present Extremities-trace edema on the right, right knee and leg is bandaged, no edema on the left side Neuro-alert, awake and oriented 3. No focal neuro deficit appreciated. Lab data as noted below. ASSESSMENT & PLAN: S/P RIGHT TKA - POD#1 - activity and wound care orders as per ortho - pain control with bowel regimen - PT/OT - monitor H/H -stable HYPERTENSION -BP controlled, continue lisinopril -Hold hydrochlorothiazide for now to prevent perioperative dehydration -Can have HCTZ on discharge GERD -Continue PPI HISTORY OF GOUT -Continue allopurinol HISTORY OF SPLENECTOMY DVT PROPHYLAXIS -SQ Lovenox as per orthopedics DISPOSITION Medically stable Vital Signs: Date Time Temp Pulse Resp B/P (MAP) Pulse Ox O2 Delivery O2 Flow Rate FiO2 05/02/17 13:46 37.2 89 20 92 Room Air 05/02/17 11:41 37.2 89 20 132/80 (97) 92 Room Air 05/02/17 08:53 93 Room Air 05/02/17 08:02 36.7 76 20 118/74 (89) 93 Room Air 05/02/17 07:30 Room Air 05/02/17 03:00 36.8 80 16 110/66 (81) 90 Room Air 05/02/17 00:08 36.6 76 16 102/63 (76) 90 Room Air 05/01/17 23:30 Room Air 05/01/17 19:00 36.9 71 16 141/91 (108) 96 Nasal Cannula 2.0 05/01/17 17:56 103 18 146/93 (110) 97 Nasal Cannula 2.0 05/01/17 16:59 91 16 144/88 (106) 96 Nasal Cannula 2.0 05/01/17 16:30 102 18 132/96 (108) 95 Nasal Cannula 2.0 05/01/17 16:00 Nasal Cannula 4.0 05/01/17 16:00 Nasal Cannula 4.0 05/01/17 16:00 36.4 91 16 135/83 (100) 94 Nasal Cannula 4.0 05/01/17 15:40 92 17 124/89 94 Nasal Cannula 4 05/01/17 15:25 80 18 136/95 94 Nasal Cannula 4 05/01/17 15:10 73 12 129/98 92 Nasal Cannula 4 Lab Results: Results Past 24 Hours Test 05/02/17 07:50 Range/Units White Blood Count 20.22 4.8-10.8 K/uL Red Blood Count 4.33 4.7-6.1 M/uL Hemoglobin 12.6 14.0-18.0 g/dL Hematocrit 35.6 42-52 % Mean Corpuscular Volume 82.2 80-100 fL Mean Corpuscular Hemoglobin 29.1 25-34 pg Mean Corpuscular Hemoglobin Concent 35.4 32-36 g/dl RDW Standard Deviation 41.5 36.4-46.3 fL RDW Coefficient of Variation 13.6 11.5-14.5 % Platelet Count 263 130-400 K/uL Mean Platelet Volume 8.9 7.4-10.4 fL Sodium Level 138 136-145 mmol/L Potassium Level 3.8 3.5-5.1 mmol/L Chloride Level 105 98-107 mmol/L Carbon Dioxide Level 27 21-32 mmol/L Anion Gap 6.0 3-11 mmol/L Blood Urea Nitrogen 18 7-18 mg/dl Creatinine 1.01 0.60-1.40 mg/dl Est Creatinine Clear Calc Drug Dose 90.9 ml/min Estimated GFR () 94.6 Estimated GFR (Non- 81.6 BUN/Creatinine Ratio 17.5 10-20 Random Glucose 111 70-99 mg/dl Calcium Level 7.9 8.5-10.1 mg/dl
== END 2017-05-02 16:48 | disposition home health service (06) | DRG 470 ==
LOC: C.ACU 07:56 → C.3E 14:25 → ENRESERV 15:34
PROVIDERS: ADMIT Orthopaedic Surgery Sports Medicine; ATTEND Orthopaedic Surgery Sports Medicine
PROC: 0SRC0J9 Replacement of Right Knee Joint with Synthetic Substitute, Cemented, Open Approach (ICD-10-PCS; principal; 2017-05-01 10:00)
DX: M17.11 Unilateral primary osteoarthritis, right knee (principal); I10 Essential (primary) hypertension; K21.9 Gastro-esophageal reflux disease without esophagitis; E66.9 Obesity, unspecified; M10.9 Gout, unspecified; Z88.0 Allergy status to penicillin; Z88.2 Allergy status to sulfonamides; Z87.442 Personal history of urinary calculi; Z68.35 Body mass index [BMI] 35.0-35.9, adult; Z80.0 Family history of malignant neoplasm of digestive organs

== ENCOUNTER → 2017-06-13 | Outpatient (CLI) | payer BC ==
[~2017-06-13] MED LIST changes: +ASPI-320 PO; -CEFAZOLIN 2000MG IV PUSH 15 ML IV SCH; -CLB/200 PO; -CeleBREX 200 MG CAP PO SCH; +ENOX40IN SQ; -GABAPENTIN 300 MG CAP PO SCH; -LACTATED RINGER'S 1000ML 1,000 ML IV SCH; -LACTATED RINGER'S 1000ML 500 ML IV SCH; -LACTATED RINGER'S 1000ML IV SCH; +OXYC-57 PO; +POTA-639 PO; -POTATAB2 PO; -ROPIVACAINE 5MG/ML 30 ML 150 MG, BUPIVACAINE/EPINEPHR 0.5% MPF 30 ML, KETOROLAC TROMETH... INFIL SCH; -SCOPOLAMINE 1.5 MG TDSY TD SCH; -TRANEXAMIC ACID INJ 1,000 MG x 1 Bag Preop IV SCH; +URC10 PO
== END | disposition home or self-care (01) ==
LOC: C.RDSM 13:30
PROVIDERS: ATTEND Orthopaedic Surgery Sports Medicine
DX: Z09 Encounter for follow-up examination after completed treatment for conditions other than malignant neoplasm (principal)